=== PATIENT | male | born 1970 | race African-American/Black ===

== ENCOUNTER 2021-10-11 13:57 | Outpatient (CLI) | payer BC | END 2021-10-11 13:58 | disposition home or self-care (01) | LOC: CSHLAB 13:57 | PROVIDERS: ATTEND Family Medicine | DX: Z20.822 Contact with and (suspected) exposure to COVID-19 (principal) | CPT/HCPCS: U0003; U0005 ==

== ENCOUNTER 2021-10-16 14:57 | Outpatient (CLI) | payer BC | END 2021-10-16 14:58 | disposition home or self-care (01) | LOC: CSHCP 14:57 | PROVIDERS: ATTEND Family Medicine | DX: R06.02 Shortness of breath (principal); R94.2 Abnormal results of pulmonary function studies | CPT/HCPCS: 94060; 94726; 94729; 94760 ==